=== PATIENT | female | born 1990 | race Caucasian/White ===

== ENCOUNTER 2018-08-22 08:03 | Emergency (ER) | payer OTHER ==
[~2018-08-22] VITALS: Ht 157.5 cm; Wt 97.5 kg
[2018-08-22 08:47] LABS: ANION GAP 7 mmol/L (7-16); BUN 9 mg/dL (7-18); CALCIUM 8.9 mg/dL (8.5-10.1); CHLORIDE 103 mmol/L (98-107); CO2 26 mmol/L (21-32); CREATININE 0.9 mg/dL (0.6-1.3); GLUCOSE 108 mg/dL (70-99); POTASSIUM 3.7 mmol/L (3.5-5.1); SODIUM 136 mmol/L (136-145)
[2018-08-22 08:58] LABS: ALBUMIN 3.9 g/dL (3.4-5.0); ALKALINE PHOSPHATASE 70 U/L (46-116); LIPASE 202 U/L (73-393); NT-PRO BRAIN NAT PEPTIDE 22 pg/mL (<300); SGOT 19 U/L (15-37); SGPT 35 U/L (30-65); TOTAL BILIRUBIN 0.3 mg/dL (<0.1-1.0); TOTAL PROTEIN 8.1 g/dL (6.4-8.2); TROPONIN-I LEVEL <0.06 ng/mL (<0.06)
[2018-08-22 09:04] LABS: PROTIME 10.4 Seconds (9.20-11.50)
[2018-08-22 09:18] LABS: ABSOLUTE BASOPHILS 0.1 thou/uL (0.0-0.2); ABSOLUTE EOSINOPHILS 0.3 thou/uL (0.0-0.7); ABSOLUTE LYMPHOCYTES 3.1 thou/uL (0.8-5.3); ABSOLUTE MONOCYTES 0.8 thou/uL (0.0-1.2); ABSOLUTE NEUTROPHILS 8.2 thou/uL (1.6-8.1); BASOPHILS 0.5 %; EOSINOPHILS 2.5 %; HEMATOCRIT 44.6 % (37.0-47.0); LYMPHOCYTES 24.8 %; MCH 31.3 pg (26.0-34.0); MCHC 33.6 g/dL (28.0-37.0); MCV 93.2 fL (80.0-100.0); MONOCYTES 6.5 %; MPV 9.1 fl. (7.2-11.1); NUCLEATED RBCS 0 /100WBC; PLATELET COUNT* 374 thou/uL (150-400); POLYS 65.7 %; RBC 4.79 mil/uL (4.20-5.00); RDW-CV 13.5 % (10.5-14.5); WBC 12.5 thou/uL (4.0-11.0)
[2018-08-22] MEDS ORDERED: TRAMADOL 50 MG50 MG PO (09:32)
[2018-08-22] MEDS ORDERED: IBUPROFEN 800800 MG PO (09:32)
[2018-08-22] MEDS ORDERED: PENICILLIN VK500 MG PO (09:32)
[2018-08-22 09:39] VITALS: BP 144/80
--- NOTE | 2018-08-23 11:38 | EKG ---
[place] [address] ELECTROCARDIOGRAM REPORT Name: CARLOS ALBERTO QUIGLEY Room: [facility]#: [id number] Admission: 08/22/18 Attend Phys: Discharge: 08/22/18 Date of : 86 Report #: [id number] THIS REPORT FOR: //name// [facility] ED Test Date: 2018-08-22 Test Time: 08:08:11 Pat Name: CARLOS ALBERTO QUIGLEY Department: Room: Gender: F [employer] Operator: Mendez ALEXANDRE : 1990 Requested By: Son [place]ward Order Number: [id number] MD: Javier Arango Measurements Intervals [place] Rate: 106 P: 61 TN: 150 QRS: 52 QRSD: 86 T: 17 QT: 340 QTc: 452 Interpretive Statements Sinus tachycardia Baseline wander in lead(s) V2 No previous ECG available for comparison Electronically Signed On 08-23-2018 11:38:25 DIRECTORY CARRIER by Javier Arango [email or web address] <ELECTRONICALLY SIGNED> By: Javier Arango MD, [facility] 08/23/18 [id number] Javier Arango MD, FACC /EPI
== END 2018-08-22 09:40 | disposition home or self-care (01) ==
LOC: M.ERS 08:03
PROVIDERS: Emergency Medicine
DX: K02.9 Dental caries, unspecified (principal); R07.89 Other chest pain; J45.909 Unspecified asthma, uncomplicated; F17.210 Nicotine dependence, cigarettes, uncomplicated; Z85.840 Personal history of malignant neoplasm of eye